=== PATIENT | male | born 1995 | race Caucasian/White ===

== ENCOUNTER 2017-02-20 02:10 | Emergency (ER) | payer OTHER ==
[~2017-02-20] VITALS: Ht 175.3 cm; Wt 86.4 kg
[2017-02-20 02:20] VITALS: BP 136/84; PULSE 93; RESP 18; O2SAT 97
--- NOTE | 2017-02-20 02:22 | ED.REPORT ---
HPI-Abd Pain F 2 and Over Date of Service February 20, 2017 ED Provider: Kiran Appiah MD Pt is an otherwise healthy 22 year old male who presents to the ED complaining of a whole body itching rash onset yesterday morning. He doesn't know if he is allergic to anything, but took 50 mg of Benadryl at 2000 yesterday in case it was an allergic reaction. This did not improve his symptoms and in fact the rash has worsened since. The rash started on his stomach, sides and arms and he is unsure if it is more prevalent in moist areas. The patient denies wheezing or swelling of the throat, tongue or mouth. The patient is from [place] and works in the kitchen at [employer]. He is not sure if he has been recently exposed to anything, but is currently recovering from a recent illness. The patient is not taking any medication to treat his illness. He denies smoking, alcohol use, or illicit drug use. Nursing Notes Stated Complaint: SKIN RASH Chief Complaint: Skin Rash/Abscess Nursing Notes Reviewed: Yes Scheduled Prednisone (PredniSONE) 20 Mg Tablet 20 MG PO 02/20/17 Ranitidine (Zantac) 150 Mg Tablet 150 MG PO BID General Time Seen by MD: 02:21 Chief Complaint Other (Rash) Hx Obtained from: Patient Arrived by: Walk-in Sudden in Onset?: No Recent Healthcare: No recent hospitalization, Recent doctor visit Similar Sx Previous: No Past Medical History Past Medical History None reported Past Surgical History None reported Smoking History Unknown if Ever Smoker Social History Lives in [place] Occupation Occupation: Works in [employer] kitchen Ambulatory Status Ambulatory Status: Independent Review of Systems Review of Systems Note: denies swelling of the throat, tongue or mouth Basic Review of Systems Eyes: Vision NL ENT: Hearing NL Respiratory: Denies: Non-productive cough, Shortness of breath, Wheezing Complete sys rev & neg: except as marked. Skin: Reports Itching, Reports Rash Physical Exam Initial Vital Signs Vital Signs (First) Date Time Temp Pulse Resp B/P Pulse Ox O2 Delivery O2 Flow Rate FiO2 02/20/17 02:20 36.5 93 18 136/84 97 Room Air Initial VS: Reviewed, Vital signs normal General / Constitutional: Awake, Alert Respiratory / Chest: Atraumatic, Breath sounds NL, Breath sounds = bilat, No respiratory distress Cardiovascular: Heart rate NL, Regular rhythm, Heart sounds NL Abdomen: Atraumatic, Soft Back: Atraumatic, Inspection NL, Full range of motion Head / Eyes: Atraumatic, Normocephalic, PERRL, EOMI ENT: Atraumatic, Airway patent, Mucous membranes moist, Pharynx NL Skin: Warm, Intact Confluent urticaria over much of body. Nothing on the face, pharynx, or intraorally. Neck: Atraumatic, Full range of motion Upper Extremity / MS: Neurologic intact, Vascular intact Lower Extremity / Pelvis / MS: Neurologic intact, Vascular intact Re-Eval/Medical Decision Med Decision/Clinical Course 22-year-old male with an allergic type rash of uncertain etiology. There are no systemic symptoms, pulmonary symptoms, or evidence of anaphylaxis. Prednisone and antihistamines for 3 days. Follow up with primary doctor for further evaluation if needed. Source of Hx: Old records Re-Evaluation/Progress : Time of Eval: 02:21 Patient Status: Condition improved Re-Evaluation/Progress Note: Pt informed of diagnosis and plan for discharge during the initial interview. Pt understands and agrees with plan for discharge. F/U instructions and RTER warnings given. All questions addressed. Counseled Regarding: Diagnosis, Need for follow-up, When/why to return to ED Discharge & Departure Impression: Primary Impression: Allergic urticaria Disposition: Home Discharge Condition All VS Reviewed: Yes Condition: No Change Patient Instructions: Urticaria (ED) Additional Instructions: The cause of your hives is not known. Recommend Benadryl 25-50 mg 3 times daily , prednisone 20 mg 3 times daily, and Zantac 150 mg twice daily. Return here if you get trouble breathing or worsening symptoms. Follow-up with your regular doctor if this becomes a recurrent issue. Contact me at [phone] between the hours of 9 PM and 6 AM if you have any concerns or questions the next couple of nights. Referrals: Noe Luther DO (PCP) Scribe Attestation Portions of this note were transcribed by Wm Pickard and Talia Stewart. IDr. Appiah personally performed the history, physical exam and medical decision-making; I reviewed and confirmed the accuracy of the information in the transcribed note. Signed by: Wm Pickard and Talia Stewart, Scribe, and 0320. Noe Luther Howard L MD February 20, 2017 02:22 Talia Salcedo February 20, 2017 02:31 WM PICKARD February 20, 2017 03:07 Kiran Appiah MD February 20, 2017 02:22 Talia Salcedo February 20, 2017 02:31 WM PICKARD February 20, 2017 03:07
[2017-02-20] MEDS ORDERED: predniSONE 20 mg Tablet PO ONE (02:30)
[2017-02-20] MEDS ORDERED: Pantoprazole 20 mg ER24 Tablet PO ONE (02:30)
[2017-02-20] MEDS ORDERED: PRE20 PO (02:35)
[2017-02-20] MEDS ORDERED: RANI150T11 PO (02:35)
[2017-02-20 03:01] VITALS: BP 136/84; PULSE 93; RESP 18; O2SAT 97
== END 2017-02-20 03:01 | disposition home or self-care (01) ==
LOC: SED 02:10
DX: L50.0 Allergic urticaria (principal)